=== PATIENT | female | born 1960 ===

== ENCOUNTER 2020-09-19 12:50 | Emergency (ER) | payer BC ==
[2020-09-19] MEDS ORDERED: Diphtheria,Pertussis(Acell),Tetanus Vaccine 0.5 ML Syringe IM ONE (13:35)
--- NOTE | 2020-09-19 13:39 | EDM.PDOC ---
ED HPI GENERAL MEDICAL PROBLEM - General Chief Complaint: General Stated Complaint: CHOPPED TIP OF THUMB /L Time Seen by Provider: 09/19/20 13:13 Source of Information: Reports: Patient History Limitations: Reports: No Limitations - History of Present Illness INITIAL COMMENTS - FREE TEXT/NARRATIVE: Presents reporting that she was cooking and accidentally chopped the end of her left thumb off. She dressed it, controlled the bleeding. Stated she was going to take care of it herself but could not get the pad from the Band-Aid off without a lot of pain and bleeding. No other injuries. Unknown tetanus status L thumb Pain Score (Numeric/FACES): 1 - Related Data Allergies Allergy/AdvReac Type Severity Reaction Status Date / Time amoxicillin [From Augmentin] Allergy Hives Verified 09/19/20 13:15 clavulanic acid Allergy Hives Verified 09/19/20 13:15 [From Augmentin] SEASONAL Allergy Sneezing Uncoded 07/11/17 09:08 Home Meds: Home Meds Levothyroxine 09/19/20 [History] Losartan [Cozaar] 09/19/20 [History] amLODIPine [Norvasc] 09/19/20 [History] atorvaSTATin [Lipitor] 09/19/20 [History] cephALEXin [Keflex] 500 mg PO TID #21 capsule 09/19/20 [Rx] metFORMIN [Glucophage XR] 500 mg PO BID 09/19/20 [History] Past Medical History Cardiovascular History: Reports: High Cholesterol, Hypertension OCCUPATIONAL THERAPY AIDE History: Reports: , Other (See Below) Other OCCUPATIONAL THERAPY AIDE History: tubal ligation Other Musculoskeletal History: broken L arm Endocrine/Metabolic History: Reports: Diabetes, Type II - Infectious Disease History Infectious Disease History: Reports: Chicken Pox - Past Surgical History HEENT Surgical History: Reports: Tonsillectomy Social & Family History - Family History Family Medical History: Noncontributory - Caffeine Use Caffeine Use: Reports: None - Recreational Drug Use Recreational Drug Use: No ED ROS GENERAL - Review of Systems Review Of Systems: Comprehensive ROS is negative, except as noted in HPI. ED EXAM, GENERAL - Physical Exam Exam: See Below Exam Limited By: No Limitations General Appearance: Alert, No Apparent Distress Ears: Normal External Exam Nose: Normal Inspection Throat/Mouth: Normal Inspection Head: Atraumatic, Normocephalic Neck: Normal Inspection Respiratory/Chest: No Respiratory Distress Cardiovascular: Normal Peripheral Pulses, Regular Rate, Rhythm Back Exam: Normal Inspection Extremities: Other (Left thumb distal tip avulsion) Neurological: Alert, Oriented, Normal Cognition Course - Vital Signs Last Recorded V/S: Last Vital Signs Temp 36.7 C 09/19/20 13:18 Pulse 95 09/19/20 13:18 Resp 18 09/19/20 13:18 BP 191/94 H 09/19/20 13:18 Pulse Ox 98 09/19/20 13:18 - Orders/Labs/Meds Orders: Active Orders 24 hr Category Date Time Status Hand 2V Lt [CR] Stat Exams 09/19/20 12:52 Taken - Re-Assessments/Exams Free Text/Narrative Re-Assessment/Exam: 09/19/20 14:05 The thumb was soaked in water with chlorhexidine for over 20 minutes the Band- Aid pad was removed. A square of Surgicel was placed over the wound. Bandaged with a tube gauze. Hemostasis achieved. Departure - Departure Time of Disposition: 14:07 Disposition: Home, Self-Care 01 Condition: Good Clinical Impression: Avulsion, finger tip Qualifiers: Encounter type: initial encounter Qualified Code(s): S61.209A - Unspecified open wound of unspecified finger without damage to nail, initial encounter - Discharge Information Referrals: Junior Yao MD [Primary Care Provider] - Additional Instructions: The following information is given to patients seen in the emergency department who are being discharged to home. This information is to outline your options for follow-up care. We provide all patients seen in our emergency department with a follow-up referral. The need for follow-up, as well as the timing and circumstances, are variable d epending upon the specifics of your emergency department visit. If you don't have a primary care physician on staff, we will provide you with a referral. We always advise you to contact your personal physician following an emergency department visit to inform them of the circumstance of the visit and for follow-up with them and/or the need for any referrals to a consulting specialist. The emergency department will also refer you to a specialist when appropriate. This referral assures that you have the opportunity for follow-up care with a specialist. All of these measure are taken in an effort to provide you with optimal care, which includes your follow-up. Under all circumstances we always encourage you to contact your private physician who remains a resource for coordinating your care. When calling for follow-up care, please make the office aware that this follow-up is from your recent emergency room visit. If for any reason you are refused follow-up, please contact the [facility] Emergency Department at and asked to speak to the emergency department charge nurse. [facility] [address] [place] [id number] 1. Leave on dressing for approximately 3 days. Cover for bathing. 2. Take your antibiotic 3 times daily due to possible bone exposure 3. Report signs of infection: Redness, swelling, drainage 4. Elevate today to prevent throbbing pain 5. Follow up in primary care as needed Sepsis Event Note (ED) - Evaluation Sepsis Screening Result: No Definite Risk - Focused Exam Vital Signs: Vital Signs Temp Pulse Resp BP Pulse Ox 09/19/20 13:18 36.7 C 95 18 191/94 H 98
--- NOTE | 2020-09-19 13:40 | CR ---
Indication: Patient slice thumb today. Technique: Two views of the left hand. Comparison: None Findings: Mild degenerative changes of the left hand are identified. Bony material is obscured by overlying materials. There is a suggestion of a fracture of the tuft of the distal phalanx of the left thumb. No other fractures are identified. Impression: Suggestion of a fracture of the tuft of the distal phalanx of the left thumb. Dictated by Kaylee Villa MD @ Sep 19 2020 1:37PM Signed by Dr. Kaylee Villa @ Sep 19 2020 1:39PM
== END 2020-09-19 14:35 | disposition home or self-care (01) ==
LOC: MW.ED 12:50
DX: S61.002A Unspecified open wound of left thumb without damage to nail, initial encounter (principal); E78.00 Pure hypercholesterolemia, unspecified; I10 Essential (primary) hypertension; E11.9 Type 2 diabetes mellitus without complications; Z79.84 Long term (current) use of oral hypoglycemic drugs; Z79.899 Other long term (current) drug therapy; Z88.1 Allergy status to other antibiotic agents; Z91.048 Other nonmedicinal substance allergy status; Z23 Encounter for immunization; W26.8XXA Contact with other sharp object(s), not elsewhere classified, initial encounter; Y93.G3 Activity, cooking and baking
CPT/HCPCS: 73120-26-LT; 73120-LT; 90471; 90715; 99283

== ENCOUNTER 2024-12-30 11:30 | Emergency (ER) | payer BC ==
[2024-12-30] MEDS: Sodium Chloride 0.9% 1,000 ML IV ONE ×2 (14:58→16:25)
[2024-12-30 15:16] LABS: BASOPHILS ABSOLUTE AUTO 0.02 K/uL (0.00-0.20); BASOPHILS PERCENT AUTO 0.3 % (0.0-1.0); EOSINOPHILS ABSOLUTE AUTO 0.15 K/uL (0.00-0.45); EOSINOPHILS PERCENT AUTO 2.1 % (0.0-6.0); HEMATOCRIT 47.5 % (37.0-47.0); HEMOGLOBIN 16.4 g/dL (12.0-16.0); IMMATURE GRAN ABSOLUTE AUTO 0.01 K/uL (0.00-0.05); IMMATURE GRAN PERCENT AUTO 0.1 % (0.0-0.4); LYMPHOCYTES ABSOLUTE AUTO 1.95 K/uL (1.00-4.80); LYMPHOCYTES PERCENT AUTO 27.9 % (24.0-44.0); MEAN CORPUSCULAR HEMOGLOBIN 31.7 pg (28.0-32.0); MEAN CORPUSCULAR HGB CONC 34.5 g/dL (32.0-36.0); MEAN CORPUSCULAR VOLUME 91.9 fL (83.0-99.0); MEAN PLATELET VOLUME 11.6 fL (9.4-12.3); MONOCYTES ABSOLUTE AUTO 0.87 K/uL (0.00-0.80); MONOCYTES PERCENT AUTO 12.5 % (0.0-8.0); NEUTROPHILS ABSOLUTE AUTO 3.98 K/uL (1.80-7.70); NEUTROPHILS PERCENT AUTO 57.1 % (41.0-71.0); PLATELET COUNT,PLT 225 K/uL (150-400); RED BLOOD CELL COUNT 5.17 M/uL (4.10-5.30); WHITE BLOOD CELL COUNT,WBC 6.98 K/uL (3.9-11.3)
[2024-12-30 15:57] LABS: A/G RATIO 0.9 (0.9-1.6); ALBUMIN 3.9 g/dL (3.4-5.0); BILIRUBIN TOTAL 0.5 mg/dL (0.2-1.0); CALCIUM 9.8 mg/dL (8.5-10.1); CARBON DIOXIDE,CO2 22.1 mmol/L (21.0-32.0); CREATININE 3.2 mg/dL (0.6-1.0); EST CRCL DRUG DOSING (CG) 15.74 mL/min; POTASSIUM,K 4.9 mmol/L (3.5-5.1); PROTEIN TOTAL,TP 8.4 g/dL (6.4-8.2)
[2024-12-30 17:45] LABS: COLOR,URINE YELLOW; GLUCOSE,URINE NEGATIVE (NEGATIVE); KETONES,URINE 15 mg/dL (NEGATIVE); LEUKOCYTE ESTERASE,URINE NEGATIVE (NEGATIVE); NITRITE,URINE NEGATIVE (NEGATIVE); OCCULT BLOOD,URINE NEGATIVE (NEGATIVE); PH,URINE 5.5 (5.0-8.0); PROTEIN,URINE TRACE mg/dL (NEGATIVE); UROBILINOGEN,URINE 0.2 EU/dL (<2.0)
[2024-12-30 17:51] LABS: APPEARANCE,URINE HAZY; BILIRUBIN,URINE SMALL (NEGATIVE)
[2024-12-30 18:21] LABS: RBC,URINE 0-1 (0-2/HPF); WBC,URINE 0-2 (0-5/HPF)
[2024-12-30 18:22] LABS: BACTERIA,URINE 1+ (NEGATIVE); EPITHELIAL CELLS,URINE FEW (NONE-FEW)
== END 2024-12-30 18:31 | disposition left against medical advice (07) ==
LOC: MW.ED 11:30
DX: N28.9 Disorder of kidney and ureter, unspecified (principal); N20.0 Calculus of kidney; I10 Essential (primary) hypertension; E78.00 Pure hypercholesterolemia, unspecified; E11.9 Type 2 diabetes mellitus without complications; Z79.899 Other long term (current) drug therapy; Z79.84 Long term (current) use of oral hypoglycemic drugs; Z88.0 Allergy status to penicillin; Z91.09 Other allergy status, other than to drugs and biological substances; Z75.8 Other problems related to medical facilities and other health care; Z53.29 Procedure and treatment not carried out because of patient's decision for other reasons
CPT/HCPCS: 36415; 74176; 80053; 81001; 85025; 87428; 96360; 96361; 99284; J7030; 99283